=== PATIENT | female | born 1955 | race African-American/Black ===

== ENCOUNTER 2016-10-04 15:00 | Inpatient (IN) | payer BC ==
[~2016-10-04] VITALS: Ht 167.6 cm; Wt 71.7 kg
[~2016-10-04 15:00] MED LIST: AMLO2.5T PO; ATOR40TA28 PO; CARB-60 PO; GABA-529 PO; HYDR-3965 PO; HYDR25TA PO; LISI-660 PO; METO5TAB95 PO; VENL-193 PO
[2016-10-04 16:23] VITALS: BP 142/73
[2016-10-04 16:36] VITALS: BP 142/73
[2016-10-04] MEDS ORDERED: DOCUSATE SODIUM 283 MG/5 ML MINI-ENEMA PR PRN (16:45)
[2016-10-04] MEDS ORDERED: ACETAMINOPHEN 325 MG TABLET PO PRN (16:45)
[2016-10-04] MEDS ORDERED: DEXTROSE 50%-WATER 25 GM/50 ML SYRINGE IVP PRN (16:45)
[2016-10-04] MEDS ORDERED: TEMAZEPAM 15 MG CAPSULE PO PRN (16:45)
[2016-10-04] MEDS: HYDROCODONE/ACETAMINOPHEN 5-325 MG TABLET PO PRN (17:08)
[2016-10-04 18:02] LABS: GLUCOSE,POINT OF CARE 96 MG/DL (70-110)
[2016-10-04] MEDS: CarBAMazepine 200 MG ER TABLET PO SCH (20:43)
[2016-10-04] MEDS: METOCLOPRAMIDE HCL 5 MG TABLET PO SCH (20:43)
[2016-10-04] MEDS: GABAPENTIN 100 MG CAPSULE PO SCH (20:43)
[2016-10-04] MEDS: INSULIN ASPART 100 UNITS/ML SQ PRN (20:59)
[2016-10-04] MEDS ORDERED: DOCUSATE SODIUM 100 MG CAPSULE PO SCH (21:00)
[2016-10-04] MEDS ORDERED: SENNA 187 MG TABLET PO SCH (21:00)
[2016-10-04] MEDS ORDERED: SENNA 187 MG TABLET PO ONE (21:15)
[2016-10-04] MEDS ORDERED: DOCUSATE SODIUM 100 MG CAPSULE PO ONE (21:15)
[2016-10-04 21:43] LABS: APPEARANCE,URINE CLEAR (CLEAR); GLUCOSE, URINE (UA) NEGATIVE (NEGATIVE); KETONES,URINE NEGATIVE (NEGATIVE); LEUKOCYTE ESTERASE ,URINE NEGATIVE (NEGATIVE); OCCULT BLOOD,URINE NEGATIVE (NEGATIVE); PROTEIN,URINE NEGATIVE (NEGATIVE)
[2016-10-04 21:45] LABS: RBC,URINE 0-2 /HPF (0-2); SQUAMOUS EPITHELIAL CELL,UR Few /LPF (None Seen); WBC,URINE 0-2 /HPF (0-5)
[2016-10-04 23:02] LABS: GLUCOSE COMMENT 1 Received Meds; GLUCOSE,POINT OF CARE 156 MG/DL (70-110)
[2016-10-04] MEDS: 0.9% SODIUM CHLORIDE 10 ML SYRINGE IVP SCH (23:06)
[2016-10-04 23:07] VITALS: BP 139/83
[2016-10-05] VITALS (9 sets, daily range): BP systolic 103–139; BP diastolic 64–83
[2016-10-05 05:47] LABS: GLUCOSE,POINT OF CARE 120 MG/DL (70-110)
[2016-10-05] MEDS ORDERED: DOCUSATE SODIUM 283 MG/5 ML MINI-ENEMA PR SCH (06:00)
[2016-10-05 06:33] LABS: BASOPHILS % (AUTO) 0.4 % (0.0-2.0); EOSINOPHILS % (AUTO) 0.1 % (1.0-6.0); HEMATOCRIT 44.9 % (36-46); HEMOGLOBIN 15.2 g/dL (12.0-16.0); LYMPHOCYTES # (AUTO) 4.6 K/uL (1.0-4.8); LYMPHOCYTES % (AUTO) 62.1 % (22.0-44.0); MEAN CORPUSCULAR HEMOGLOBIN 29.5 pg (26.0-34.0); MEAN CORPUSCULAR HGB CONC 33.9 G/dL (31.0-37.0); MEAN CORPUSCULAR VOLUME 87 fL (80-100); MONOCYTES # (AUTO) 0.3 K/uL (0.1-1.0); MONOCYTES % (AUTO) 4.3 % (2.0-9.0); NEUTROPHILS # (AUTO) 2.5 K/uL (1.8-7.7); NEUTROPHILS % (AUTO) 33.1 % (40.0-70.0); PLATELET COUNT (AUTO) 312 K/uL (150-450); RED BLOOD CELL COUNT(AUTO) 5.16 MIL/uL (4.00-5.20); RED CELL DISTRIBUTION WIDTH 13.7 % (11.5-14.5); WHITE BLOOD COUNT (AUTO) 7.5 K/uL (4.5-11.0)
[2016-10-05 06:49] LABS: ALANINE AMINOTRANSFERASE 12 U/L (12-78); ALBUMIN 3.3 g/dL (3.4-5.0); ANION GAP 8 mmol/L (8-16); ASPARTATE AMINOTRANSFERASE 19 U/L (15-37); BILIRUBIN,TOTAL 0.4 mg/dL (0.1-1.0); CALCIUM, TOTAL 9.1 mg/dL (8.8-10.5); CARBON DIOXIDE 30 mmol/L (22-29); CHLORIDE 98 mmol/L (98-107); GLOMERULAR FILTR. RATE CALC > 60 mL/min (>60); SODIUM SERUM 136 mmol/L (136-145); TOTAL PROTEIN, SERUM 7.3 g/dL (6.4-8.2); UREA NITROGEN, BLOOD 24 mg/dL (7-18)
[2016-10-05] MEDS: 0.9% SODIUM CHLORIDE 10 ML SYRINGE IVP SCH (08:00)
[2016-10-05] MEDS: ASPIRIN 325 MG TABLET PO SCH (08:18)
[2016-10-05] MEDS: VENLAFAXINE HCL 75 MG TABLET PO SCH (08:19)
[2016-10-05] MEDS: AmLODIPine BESYLATE 2.5 MG TABLET PO SCH (08:20)
[2016-10-05] MEDS: ATORVASTATIN CALCIUM 40 MG TABLET PO SCH (08:20)
[2016-10-05] MEDS: GABAPENTIN 100 MG CAPSULE PO SCH ×2 (08:20→20:20)
[2016-10-05] MEDS: CarBAMazepine 200 MG ER TABLET PO SCH ×2 (08:20→20:19)
[2016-10-05] MEDS: LISINOPRIL 5 MG TABLET PO SCH (08:20)
[2016-10-05] MEDS: METOCLOPRAMIDE HCL 5 MG TABLET PO SCH ×4 (08:20→20:20)
[2016-10-05] MEDS: HYDROCHLOROTHIAZIDE 25 MG TABLET PO SCH (08:20)
[2016-10-05] MEDS: POLYETHYLENE GLYCOL 3350 17 GM PACKET PO SCH ×2 (08:32→20:20)
[2016-10-05] MEDS: DOCUSATE SODIUM 250 MG CAPSULE PO SCH ×2 (08:32→20:19)
[2016-10-05] MEDS ORDERED: DOCUSATE SODIUM 100 MG CAPSULE PO SCH (09:00)
[2016-10-05 12:58] LABS: GLUCOSE,POINT OF CARE 97 MG/DL (70-110)
[2016-10-05 19:17] LABS: GLUCOSE,POINT OF CARE 84 MG/DL (70-110)
[2016-10-05] MEDS: SENNA 187 MG TABLET PO SCH (20:20)
[2016-10-05 21:27] LABS: GLUCOSE,POINT OF CARE 119 MG/DL (70-110)
[2016-10-06 06:03] LABS: GLUCOSE,POINT OF CARE 133 MG/DL (70-110)
[2016-10-06 07:53] VITALS: BP 127/77
[2016-10-06] MEDS: ATORVASTATIN CALCIUM 40 MG TABLET PO SCH (08:12)
[2016-10-06] MEDS: METOCLOPRAMIDE HCL 5 MG TABLET PO SCH ×4 (08:12→20:34)
[2016-10-06] MEDS: POLYETHYLENE GLYCOL 3350 17 GM PACKET PO SCH ×2 (08:12→20:35)
[2016-10-06] MEDS: DOCUSATE SODIUM 250 MG CAPSULE PO SCH ×2 (08:12→20:34)
[2016-10-06] MEDS: GABAPENTIN 100 MG CAPSULE PO SCH ×2 (08:12→20:35)
[2016-10-06] MEDS: HYDROCHLOROTHIAZIDE 25 MG TABLET PO SCH (08:12)
[2016-10-06] MEDS: AmLODIPine BESYLATE 2.5 MG TABLET PO SCH (08:12)
[2016-10-06] MEDS: CarBAMazepine 200 MG ER TABLET PO SCH ×2 (08:12→20:34)
[2016-10-06] MEDS: LISINOPRIL 5 MG TABLET PO SCH (08:13)
[2016-10-06] MEDS: ASPIRIN 325 MG TABLET PO SCH (08:13)
[2016-10-06] MEDS: VENLAFAXINE HCL 75 MG TABLET PO SCH (08:16)
[2016-10-06 09:07] VITALS: BP 127/77
[2016-10-06] MEDS: ENOXAPARIN SODIUM 40 MG/0.4 ML PF SYRINGE SQ SCH (12:44)
[2016-10-06 12:52] LABS: GLUCOSE,POINT OF CARE 106 MG/DL (70-110)
[2016-10-06 15:31] VITALS: BP 129/75
[2016-10-06 16:30] VITALS: BP 129/75
[2016-10-06 17:22] LABS: GLUCOSE,POINT OF CARE 101 MG/DL (70-110)
[2016-10-06] MEDS: HYDROCODONE/ACETAMINOPHEN 5-325 MG TABLET PO PRN (20:34)
[2016-10-06] MEDS: SENNA 187 MG TABLET PO SCH (20:34)
[2016-10-06 21:06] LABS: GLUCOSE,POINT OF CARE 126 MG/DL (70-110)
[2016-10-07 02:15] VITALS: BP 136/78
[2016-10-07 05:58] LABS: GLUCOSE,POINT OF CARE 124 MG/DL (70-110)
[2016-10-07 07:13] VITALS: BP 106/49
[2016-10-07] MEDS: HYDROCHLOROTHIAZIDE 25 MG TABLET PO SCH (08:04)
[2016-10-07] MEDS: POLYETHYLENE GLYCOL 3350 17 GM PACKET PO SCH ×2 (08:04→20:36)
[2016-10-07] MEDS: LISINOPRIL 5 MG TABLET PO SCH (08:05)
[2016-10-07] MEDS: ATORVASTATIN CALCIUM 40 MG TABLET PO SCH (08:05)
[2016-10-07] MEDS: GABAPENTIN 100 MG CAPSULE PO SCH ×2 (08:05→20:36)
[2016-10-07] MEDS: AmLODIPine BESYLATE 2.5 MG TABLET PO SCH (08:05)
[2016-10-07] MEDS: METOCLOPRAMIDE HCL 5 MG TABLET PO SCH ×4 (08:05→20:37)
[2016-10-07] MEDS: CarBAMazepine 200 MG ER TABLET PO SCH ×2 (08:05→20:36)
[2016-10-07] MEDS: ENOXAPARIN SODIUM 40 MG/0.4 ML PF SYRINGE SQ SCH (08:06)
[2016-10-07] MEDS: ASPIRIN 325 MG TABLET PO SCH (08:06)
[2016-10-07] MEDS: DOCUSATE SODIUM 250 MG CAPSULE PO SCH ×2 (08:06→20:36)
[2016-10-07] MEDS: VENLAFAXINE HCL 75 MG TABLET PO SCH (08:23)
[2016-10-07] MEDS ORDERED: LACTULOSE 20 GM/30 ML SOLUTION UDCUP PO SCH (11:30)
[2016-10-07 12:06] LABS: ANION GAP 8 mmol/L (8-16); CALCIUM, TOTAL 9.5 mg/dL (8.8-10.5); CARBON DIOXIDE 30 mmol/L (22-29); CHLORIDE 97 mmol/L (98-107); CREATININE 1.09 mg/dL (0.60-1.30); GLOMERULAR FILTR. RATE CALC > 60 mL/min (>60); POTASSIUM 4.3 mmol/L (3.5-5.1); SODIUM SERUM 135 mmol/L (136-145); UREA NITROGEN, BLOOD 34 mg/dL (7-18)
[2016-10-07 12:08] LABS: GLUCOSE,POINT OF CARE 108 MG/DL (70-110)
[2016-10-07 15:14] VITALS: BP 118/69
[2016-10-07 18:28] LABS: GLUCOSE,POINT OF CARE 90 MG/DL (70-110)
[2016-10-07] MEDS: HYDROCODONE/ACETAMINOPHEN 5-325 MG TABLET PO PRN (19:47)
[2016-10-07] MEDS: SENNA 187 MG TABLET PO SCH (20:36)
[2016-10-07] MEDS: INSULIN ASPART 100 UNITS/ML SQ PRN (20:39)
[2016-10-07 21:02] LABS: GLUCOSE,POINT OF CARE 195 MG/DL (70-110)
[2016-10-08 20:53] LABS: GLUCOSE COMMENT 1 Received Meds; GLUCOSE,POINT OF CARE 161 MG/DL (70-110)
== END 2016-10-07 22:49 | disposition short-term general hospital (02) | DRG 65 ==
LOC: 2WR 15:00
DX: I63.9 Cerebral infarction, unspecified (principal); F33.1 Major depressive disorder, recurrent, moderate; G81.94 Hemiplegia, unspecified affecting left nondominant side; E78.5 Hyperlipidemia, unspecified; E11.9 Type 2 diabetes mellitus without complications; G40.909 Epilepsy, unspecified, not intractable, without status epilepticus; I11.0 Hypertensive heart disease with heart failure; Z60.2 Problems related to living alone; F17.200 Nicotine dependence, unspecified, uncomplicated; F43.22 Adjustment disorder with anxiety; K59.00 Constipation, unspecified; F12.90 Cannabis use, unspecified, uncomplicated; I50.9 Heart failure, unspecified; Z79.84 Long term (current) use of oral hypoglycemic drugs; Z79.82 Long term (current) use of aspirin; Z91.011 Allergy to milk products; Z79.899 Other long term (current) drug therapy; Z86.73 Personal history of transient ischemic attack (TIA), and cerebral infarction without residual deficits; Z82.49 Family history of ischemic heart disease and other diseases of the circulatory system
CPT/HCPCS: 70450; 82962; 87081; 92507; 92523; 97112; 97116; 97163; 97167; 97530; 97535; 99366; J1650

== ENCOUNTER 2016-10-07 22:55 | Inpatient (IN) | payer BC ==
[2016-10-08] VITALS (7 sets, daily range): BP systolic 109–131; BP diastolic 59–75
[2016-10-08] MEDS ORDERED: 0.9% SODIUM CHLORIDE 10 ML SYRINGE IVP PRN (06:15)
[2016-10-08] MEDS ORDERED: HYDROCODONE/ACETAMINOPHEN 5-325 MG TABLET PO PRN (06:15)
[2016-10-08] MEDS ORDERED: ACETAMINOPHEN 325 MG TABLET PO PRN (06:15)
[2016-10-08] MEDS ORDERED: MAGNESIUM HYDROXIDE SUSPENSION 30 ML UDCUP PO PRN (06:15)
[2016-10-08] MEDS ORDERED: ONDANSETRON HCL 4 MG/2 ML VIAL IVP PRN (06:15)
[2016-10-08] MEDS ORDERED: BISACODYL 10 MG RECTAL RECTAL SUPPOSITORY PR PRN (06:15)
[2016-10-08 06:29] LABS: HEMOGLOBIN A1C 5.6 % (4.5-6.2)
[2016-10-08 06:35] LABS: CHOL/HDL RATIO 3.8 (3.9-5.7); THYROID STIMULATING HORMONE 3.06 uIU/mL (0.36-3.74)
[2016-10-08] MEDS: INSULIN ASPART 100 UNITS/ML SQ PRN ×3 (06:43→18:45)
[2016-10-08] MEDS ORDERED: DEXTROSE 50%-WATER 25 GM/50 ML SYRINGE IVP PRN (06:45)
[2016-10-08 06:48] LABS: EOSINOPHILS % (AUTO) 0.1 % (1.0-6.0); HEMOGLOBIN 13.2 g/dL (12.0-16.0); LYMPHOCYTES # (AUTO) 2.7 K/uL (1.0-4.8); LYMPHOCYTES % (AUTO) 47.9 % (22.0-44.0); MEAN CORPUSCULAR HEMOGLOBIN 29.4 pg (26.0-34.0); MEAN CORPUSCULAR HGB CONC 33.9 G/dL (31.0-37.0); MEAN CORPUSCULAR VOLUME 87 fL (80-100); MONOCYTES # (AUTO) 0.4 K/uL (0.1-1.0); MONOCYTES % (AUTO) 6.4 % (2.0-9.0); NEUTROPHILS # (AUTO) 2.6 K/uL (1.8-7.7); NEUTROPHILS % (AUTO) 45.6 % (40.0-70.0); PLATELET COUNT (AUTO) 377 K/uL (150-450); RED CELL DISTRIBUTION WIDTH 13.8 % (11.5-14.5); WHITE BLOOD COUNT (AUTO) 5.7 K/uL (4.5-11.0)
[2016-10-08 07:06] LABS: ALANINE AMINOTRANSFERASE 15 U/L (12-78); ALBUMIN 3.1 g/dL (3.4-5.0); ANION GAP 7 mmol/L (8-16); ASPARTATE AMINOTRANSFERASE 17 U/L (15-37); BILIRUBIN,TOTAL 0.3 mg/dL (0.1-1.0); CALCIUM, TOTAL 8.8 mg/dL (8.8-10.5); CARBON DIOXIDE 30 mmol/L (22-29); CHLORIDE 97 mmol/L (98-107); CREATININE 1.02 mg/dL (0.60-1.30); GLOMERULAR FILTR. RATE CALC > 60 mL/min (>60); PHOSPHORUS 4.1 mg/dL (2.5-4.9); POTASSIUM 4.1 mmol/L (3.5-5.1); SODIUM SERUM 134 mmol/L (136-145); TOTAL PROTEIN, SERUM 6.9 g/dL (6.4-8.2); UREA NITROGEN, BLOOD 34 mg/dL (7-18)
[2016-10-08] MEDS ORDERED: DIAZEPAM 5 MG TABLET PO ONE (08:00)
[2016-10-08] MEDS: LISINOPRIL 5 MG TABLET PO SCH (09:01)
[2016-10-08] MEDS: AmLODIPine BESYLATE 2.5 MG TABLET PO SCH (09:01)
[2016-10-08] MEDS: CLOPIDOGREL BISULFATE 75 MG TABLET PO SCH (09:01)
[2016-10-08] MEDS: GABAPENTIN 100 MG CAPSULE PO SCH ×2 (09:01→20:53)
[2016-10-08] MEDS: PANTOPRAZOLE SODIUM 40 MG DR TABLET PO SCH (09:01)
[2016-10-08] MEDS: ATORVASTATIN CALCIUM 40 MG TABLET PO SCH (09:01)
[2016-10-08] MEDS: VENLAFAXINE HCL 75 MG TABLET PO SCH (09:01)
[2016-10-08] MEDS: DOCUSATE SODIUM 100 MG CAPSULE PO PRN (16:28)
[2016-10-08 20:53] LABS: GLUCOSE,POINT OF CARE 111 MG/DL (70-110)
[2016-10-08 20:53] LABS: GLUCOSE,POINT OF CARE 171 MG/DL (70-110)
[2016-10-08] MEDS: LevETIRAcetam 500 MG TABLET PO SCH (20:53)
[2016-10-09 04:35] VITALS: BP 111/63
[2016-10-09] MEDS: INSULIN ASPART 100 UNITS/ML SQ PRN ×2 (06:05→21:11)
[2016-10-09 07:42] LABS: GLUCOSE COMMENT 1 Received Meds; GLUCOSE,POINT OF CARE 149 MG/DL (70-110)
[2016-10-09 08:03] VITALS: BP 108/55
[2016-10-09] MEDS: AmLODIPine BESYLATE 2.5 MG TABLET PO SCH (09:00)
[2016-10-09] MEDS: CLOPIDOGREL BISULFATE 75 MG TABLET PO SCH (09:06)
[2016-10-09] MEDS: PANTOPRAZOLE SODIUM 40 MG DR TABLET PO SCH (09:06)
[2016-10-09] MEDS: VENLAFAXINE HCL 75 MG TABLET PO SCH (09:06)
[2016-10-09] MEDS: ATORVASTATIN CALCIUM 40 MG TABLET PO SCH (09:06)
[2016-10-09] MEDS: LevETIRAcetam 500 MG TABLET PO SCH ×2 (09:06→21:11)
[2016-10-09] MEDS: GABAPENTIN 100 MG CAPSULE PO SCH ×2 (09:06→21:11)
[2016-10-09] MEDS: LISINOPRIL 5 MG TABLET PO SCH (11:46)
[2016-10-09 12:09] VITALS: BP 128/65
[2016-10-09 16:28] VITALS: BP 113/66
[2016-10-09 19:19] VITALS: BP 128/78
[2016-10-09 19:28] LABS: GLUCOSE,POINT OF CARE 106 MG/DL (70-110)
[2016-10-09 19:28] LABS: GLUCOSE,POINT OF CARE 101 MG/DL (70-110)
[2016-10-09 23:32] VITALS: BP 97/82
[2016-10-10 01:53] LABS: GLUCOSE COMMENT 1 Received Meds; GLUCOSE,POINT OF CARE 184 MG/DL (70-110)
[2016-10-10 04:49] VITALS: BP 105/62
[2016-10-10 08:12] VITALS: BP 107/62
[2016-10-10] MEDS: PANTOPRAZOLE SODIUM 40 MG DR TABLET PO SCH (08:30)
[2016-10-10] MEDS: AmLODIPine BESYLATE 2.5 MG TABLET PO SCH (08:30)
[2016-10-10] MEDS: VENLAFAXINE HCL 75 MG TABLET PO SCH (08:30)
[2016-10-10] MEDS: LISINOPRIL 5 MG TABLET PO SCH (08:30)
[2016-10-10] MEDS: GABAPENTIN 100 MG CAPSULE PO SCH ×2 (08:30→20:19)
[2016-10-10] MEDS: ATORVASTATIN CALCIUM 40 MG TABLET PO SCH (08:30)
[2016-10-10] MEDS: LevETIRAcetam 500 MG TABLET PO SCH ×2 (08:30→20:19)
[2016-10-10] MEDS: CLOPIDOGREL BISULFATE 75 MG TABLET PO SCH (08:30)
[2016-10-10 09:52] LABS: GLUCOSE,POINT OF CARE 134 MG/DL (70-110)
[2016-10-10 11:53] LABS: GLUCOSE,POINT OF CARE 103 MG/DL (70-110)
[2016-10-10 12:05] VITALS: BP 121/68
[2016-10-10 16:13] VITALS: BP 121/64
[2016-10-10] MEDS: INSULIN ASPART 100 UNITS/ML SQ PRN (17:20)
[2016-10-10 19:35] VITALS: BP 128/61
[2016-10-10 23:38] LABS: GLUCOSE,POINT OF CARE 136 MG/DL (70-110)
[2016-10-10 23:38] LABS: GLUCOSE,POINT OF CARE 283 MG/DL (70-110)
[2016-10-11 00:01] VITALS: BP 123/64
[2016-10-11 04:42] VITALS: BP 113/66
[2016-10-11 07:54] VITALS: BP 112/71
[2016-10-11] MEDS: AmLODIPine BESYLATE 2.5 MG TABLET PO SCH (08:45)
[2016-10-11] MEDS: VENLAFAXINE HCL 75 MG TABLET PO SCH (08:45)
[2016-10-11] MEDS: CLOPIDOGREL BISULFATE 75 MG TABLET PO SCH (08:45)
[2016-10-11] MEDS: GABAPENTIN 100 MG CAPSULE PO SCH ×2 (08:45→20:40)
[2016-10-11] MEDS: PANTOPRAZOLE SODIUM 40 MG DR TABLET PO SCH (08:45)
[2016-10-11] MEDS: LevETIRAcetam 500 MG TABLET PO SCH ×2 (08:45→20:40)
[2016-10-11] MEDS: ATORVASTATIN CALCIUM 40 MG TABLET PO SCH (08:45)
[2016-10-11] MEDS: LISINOPRIL 5 MG TABLET PO SCH (11:39)
[2016-10-11 12:02] VITALS: BP 119/65
[2016-10-11 13:57] LABS: GLUCOSE,POINT OF CARE 134 MG/DL (70-110)
[2016-10-11 13:58] LABS: GLUCOSE,POINT OF CARE 98 MG/DL (70-110)
[2016-10-11 13:58] LABS: GLUCOSE,POINT OF CARE 123 MG/DL (70-110)
[2016-10-11] MEDS ORDERED: ATOR40TA28 PO (15:45)
[2016-10-11] MEDS ORDERED: CLOP75 PO (15:47)
[2016-10-11] MEDS ORDERED: ASPI-1093 PO (15:47)
[2016-10-11] MEDS ORDERED: LEVE500T53 PO (15:52)
[2016-10-11 20:29] VITALS: BP 115/77
[2016-10-11] MEDS: INSULIN ASPART 100 UNITS/ML SQ PRN (20:42)
[2016-10-11 23:11] VITALS: BP 122/67
[2016-10-12 04:56] VITALS: BP 115/71
[2016-10-12] MEDS: INSULIN ASPART 100 UNITS/ML SQ PRN (06:28)
[2016-10-12 07:41] VITALS: BP 115/76
[2016-10-12] MEDS: GABAPENTIN 100 MG CAPSULE PO SCH (08:18)
[2016-10-12] MEDS: ATORVASTATIN CALCIUM 40 MG TABLET PO SCH (08:18)
[2016-10-12] MEDS: VENLAFAXINE HCL 75 MG TABLET PO SCH (08:18)
[2016-10-12] MEDS: PANTOPRAZOLE SODIUM 40 MG DR TABLET PO SCH (08:18)
[2016-10-12] MEDS: LISINOPRIL 5 MG TABLET PO SCH (08:18)
[2016-10-12] MEDS: LevETIRAcetam 500 MG TABLET PO SCH (08:18)
[2016-10-12] MEDS: DOCUSATE SODIUM 100 MG CAPSULE PO PRN (08:19)
[2016-10-12] MEDS: CLOPIDOGREL BISULFATE 75 MG TABLET PO SCH (08:19)
[2016-10-12] MEDS: AmLODIPine BESYLATE 2.5 MG TABLET PO SCH (09:00)
[2016-10-12 12:04] VITALS: BP 116/63
[2016-10-13 07:48] LABS: GLUCOSE COMMENT 1 Received Meds; GLUCOSE,POINT OF CARE 145 MG/DL (70-110)
[2016-10-13 07:48] LABS: GLUCOSE,POINT OF CARE 136 MG/DL (70-110)
[2016-10-13 07:48] LABS: GLUCOSE,POINT OF CARE 116 MG/DL (70-110)
[2016-10-13 17:18] LABS: GLUCOSE,POINT OF CARE 126 MG/DL (70-110)
[2016-10-14 07:53] LABS: GLUCOSE COMMENT 1 Received Meds; GLUCOSE,POINT OF CARE 185 MG/DL (70-110)
== END 2016-10-12 15:40 | DRG 65 ==
LOC: 5N 22:55 → 5S 10-08 22:40 → 5N 10-10 20:07
PROVIDERS: ADMIT Internal Medicine; ATTEND Internal Medicine
DX: I63.9 Cerebral infarction, unspecified (principal); I69.354 Hemiplegia and hemiparesis following cerebral infarction affecting left non-dominant side; E11.9 Type 2 diabetes mellitus without complications; E78.00 Pure hypercholesterolemia, unspecified; I10 Essential (primary) hypertension; E78.5 Hyperlipidemia, unspecified; G40.909 Epilepsy, unspecified, not intractable, without status epilepticus; Z79.02 Long term (current) use of antithrombotics/antiplatelets; Z79.899 Other long term (current) drug therapy; Z82.49 Family history of ischemic heart disease and other diseases of the circulatory system; Z88.8 Allergy status to other drugs, medicaments and biological substances
CPT/HCPCS: 70544; 70551; 82607; 82746; 82962; 83036; 83735; 84100; 84439; 84443; 87081; 92507; 92523; 93306; 93880; 95816; 97112; 97116; 97163; 97166; 97530; 97535

== ENCOUNTER 2016-10-12 15:40 | Inpatient (IN) | payer BC ==
[~2016-10-12] VITALS: Ht 167.6 cm; Wt 68.0 kg
[~2016-10-12 15:40] MED LIST changes: +ASPI-1093 PO; +CLOP75 PO; +LEVE500T53 PO
[2016-10-12] MEDS ORDERED: DOCUSATE SODIUM 283 MG/5 ML MINI-ENEMA PR PRN (16:45)
[2016-10-12 16:48] VITALS: BP 101/68
[2016-10-12] MEDS ORDERED: DEXTROSE 50%-WATER 25 GM/50 ML SYRINGE IVP PRN (17:30)
[2016-10-12] MEDS: ATORVASTATIN CALCIUM 40 MG TABLET PO SCH (20:57)
[2016-10-12] MEDS: LevETIRAcetam 500 MG TABLET PO SCH (20:57)
[2016-10-12] MEDS: METOCLOPRAMIDE HCL 5 MG TABLET PO SCH (20:57)
[2016-10-12] MEDS: SENNA 187 MG TABLET PO SCH (20:57)
[2016-10-12] MEDS: GABAPENTIN 100 MG CAPSULE PO SCH (20:57)
[2016-10-12] MEDS: DOCUSATE SODIUM 100 MG CAPSULE PO SCH (20:57)
[2016-10-12] MEDS: CarBAMazepine 200 MG TABLET PO SCH (20:58)
[2016-10-12 21:18] LABS: APPEARANCE,URINE CLEAR (CLEAR); GLUCOSE, URINE (UA) NEGATIVE (NEGATIVE); KETONES,URINE NEGATIVE (NEGATIVE); LEUKOCYTE ESTERASE ,URINE NEGATIVE (NEGATIVE); OCCULT BLOOD,URINE NEGATIVE (NEGATIVE); PROTEIN,URINE NEGATIVE (NEGATIVE)
[2016-10-12 21:23] LABS: ADD UA MICROSCOPIC NO
[2016-10-12 22:33] LABS: GLUCOSE,POINT OF CARE 119 MG/DL (70-110)
[2016-10-13] VITALS: BP 115/66
[2016-10-13 06:02] LABS: GLUCOSE,POINT OF CARE 147 MG/DL (70-110)
[2016-10-13 07:10] VITALS: BP 113/66
[2016-10-13 07:23] LABS: ALANINE AMINOTRANSFERASE 13 U/L (12-78); ALBUMIN 2.9 g/dL (3.4-5.0); ANION GAP 7 mmol/L (8-16); ASPARTATE AMINOTRANSFERASE 16 U/L (15-37); BILIRUBIN,TOTAL 0.2 mg/dL (0.1-1.0); CALCIUM, TOTAL 8.8 mg/dL (8.8-10.5); CARBON DIOXIDE 30 mmol/L (22-29); CHLORIDE 104 mmol/L (98-107); CREATININE 1.02 mg/dL (0.60-1.30); GLOMERULAR FILTR. RATE CALC > 60 mL/min (>60); POTASSIUM 4.9 mmol/L (3.5-5.1); SODIUM SERUM 141 mmol/L (136-145); TOTAL PROTEIN, SERUM 6.6 g/dL (6.4-8.2); UREA NITROGEN, BLOOD 28 mg/dL (7-18)
[2016-10-13 07:25] LABS: BASOPHILS # (AUTO) 0.01 K/uL (0.00-0.20); BASOPHILS % (AUTO) 0.2 % (0.0-2.0); EOSINOPHILS % (AUTO) 0.05 % (1.0-6.0); HEMATOCRIT 38.7 % (36-46); HEMOGLOBIN 12.6 g/dL (12.0-16.0); LYMPHOCYTES # (AUTO) 3.1 K/uL (1.0-4.8); LYMPHOCYTES % (AUTO) 50.3 % (22.0-44.0); MEAN CORPUSCULAR HEMOGLOBIN 28.8 pg (26.0-34.0); MEAN CORPUSCULAR HGB CONC 32.5 G/dL (31.0-37.0); MEAN CORPUSCULAR VOLUME 89 fL (80-100); MONOCYTES # (AUTO) 0.4 K/uL (0.1-1.0); MONOCYTES % (AUTO) 6.6 % (2.0-9.0); NEUTROPHILS # (AUTO) 2.6 K/uL (1.8-7.7); NEUTROPHILS % (AUTO) 42.9 % (40.0-70.0); PLATELET COUNT (AUTO) 456 K/uL (150-450); RED BLOOD CELL COUNT(AUTO) 4.37 MIL/uL (4.00-5.20); RED CELL DISTRIBUTION WIDTH 13.4 % (11.5-14.5); WHITE BLOOD COUNT (AUTO) 6.1 K/uL (4.5-11.0)
[2016-10-13] MEDS: AmLODIPine BESYLATE 2.5 MG TABLET PO SCH (08:18)
[2016-10-13] MEDS: GABAPENTIN 100 MG CAPSULE PO SCH (08:18)
[2016-10-13] MEDS: HYDROCHLOROTHIAZIDE 25 MG TABLET PO SCH (08:18)
[2016-10-13] MEDS: DOCUSATE SODIUM 100 MG CAPSULE PO SCH ×2 (08:18→20:25)
[2016-10-13] MEDS: VENLAFAXINE HCL 75 MG TABLET PO SCH (08:18)
[2016-10-13] MEDS: LISINOPRIL 5 MG TABLET PO SCH (08:18)
[2016-10-13] MEDS: LevETIRAcetam 500 MG TABLET PO SCH ×2 (08:18→20:25)
[2016-10-13] MEDS: CLOPIDOGREL BISULFATE 75 MG TABLET PO SCH (08:18)
[2016-10-13] MEDS: METOCLOPRAMIDE HCL 5 MG TABLET PO SCH (08:19)
[2016-10-13] MEDS: ASPIRIN 81 MG EC TABLET PO SCH (08:19)
[2016-10-13] MEDS: INSULIN ASPART 100 UNITS/ML SQ PRN ×2 (08:37→21:25)
[2016-10-13] MEDS: CarBAMazepine 200 MG TABLET PO SCH ×2 (09:00→21:00)
[2016-10-13 12:12] LABS: GLUCOSE,POINT OF CARE 121 MG/DL (70-110)
[2016-10-13 16:40] VITALS: BP 119/68
[2016-10-13 17:18] LABS: GLUCOSE,POINT OF CARE 114 MG/DL (70-110)
[2016-10-13] MEDS: ATORVASTATIN CALCIUM 40 MG TABLET PO SCH (20:25)
[2016-10-13] MEDS: SENNA 187 MG TABLET PO SCH (20:25)
[2016-10-13 21:27] LABS: GLUCOSE COMMENT 1 Received Meds; GLUCOSE,POINT OF CARE 163 MG/DL (70-110)
[2016-10-14 01:04] VITALS: BP 116/55
[2016-10-14 05:57] LABS: GLUCOSE,POINT OF CARE 136 MG/DL (70-110)
[2016-10-14 08:30] VITALS: BP 111/71
[2016-10-14] MEDS: LevETIRAcetam 500 MG TABLET PO SCH ×2 (09:08→20:00)
[2016-10-14] MEDS: VENLAFAXINE HCL 75 MG TABLET PO SCH (09:08)
[2016-10-14] MEDS: DOCUSATE SODIUM 100 MG CAPSULE PO SCH ×2 (09:08→20:00)
[2016-10-14] MEDS: AmLODIPine BESYLATE 2.5 MG TABLET PO SCH (09:08)
[2016-10-14] MEDS: CLOPIDOGREL BISULFATE 75 MG TABLET PO SCH (09:08)
[2016-10-14] MEDS: LISINOPRIL 5 MG TABLET PO SCH (09:08)
[2016-10-14] MEDS: ASPIRIN 81 MG EC TABLET PO SCH (09:08)
[2016-10-14] MEDS: HYDROCHLOROTHIAZIDE 25 MG TABLET PO SCH (09:08)
[2016-10-14 12:33] LABS: GLUCOSE,POINT OF CARE 128 MG/DL (70-110)
[2016-10-14] MEDS: FAMOTIDINE 20 MG TABLET PO SCH (12:41)
[2016-10-14 15:59] VITALS: BP 124/77
[2016-10-14 17:43] LABS: GLUCOSE,POINT OF CARE 107 MG/DL (70-110)
[2016-10-14] MEDS: ACETAMINOPHEN 325 MG TABLET PO PRN (19:11)
[2016-10-14] MEDS: SENNA 187 MG TABLET PO SCH (20:00)
[2016-10-14] MEDS: ATORVASTATIN CALCIUM 40 MG TABLET PO SCH (20:00)
[2016-10-14 22:32] LABS: GLUCOSE,POINT OF CARE 179 MG/DL (70-110)
[2016-10-14 23:33] VITALS: BP 130/60
[2016-10-15 06:17] LABS: GLUCOSE,POINT OF CARE 114 MG/DL (70-110)
[2016-10-15 07:55] VITALS: BP 102/61
[2016-10-15] MEDS: FAMOTIDINE 20 MG TABLET PO SCH (08:23)
[2016-10-15] MEDS: ASPIRIN 81 MG EC TABLET PO SCH (08:23)
[2016-10-15] MEDS: CLOPIDOGREL BISULFATE 75 MG TABLET PO SCH (08:23)
[2016-10-15] MEDS: LevETIRAcetam 500 MG TABLET PO SCH ×2 (08:24→20:34)
[2016-10-15] MEDS: VENLAFAXINE HCL 75 MG TABLET PO SCH (08:24)
[2016-10-15] MEDS: DOCUSATE SODIUM 100 MG CAPSULE PO SCH ×2 (08:25→20:34)
[2016-10-15 10:59] VITALS: BP 116/63
[2016-10-15] MEDS: AmLODIPine BESYLATE 2.5 MG TABLET PO SCH (11:02)
[2016-10-15] MEDS: HYDROCHLOROTHIAZIDE 25 MG TABLET PO SCH (11:02)
[2016-10-15] MEDS: LISINOPRIL 5 MG TABLET PO SCH (11:02)
[2016-10-15] MEDS: GABAPENTIN 100 MG CAPSULE PO SCH ×2 (11:03→20:34)
[2016-10-15 12:12] LABS: GLUCOSE,POINT OF CARE 99 MG/DL (70-110)
[2016-10-15] MEDS: INSULIN ASPART 100 UNITS/ML SQ PRN (12:19)
[2016-10-15 15:49] VITALS: BP 123/60
[2016-10-15] MEDS: HYDROCODONE/ACETAMINOPHEN 5-325 MG TABLET PO PRN (18:42)
[2016-10-15 18:44] VITALS: BP 106/55
[2016-10-15 19:42] LABS: GLUCOSE,POINT OF CARE 104 MG/DL (70-110)
[2016-10-15] MEDS: ATORVASTATIN CALCIUM 40 MG TABLET PO SCH (20:34)
[2016-10-15 21:17] LABS: GLUCOSE,POINT OF CARE 112 MG/DL (70-110)
[2016-10-16 01:17] VITALS: BP 116/57
[2016-10-16 07:20] VITALS: BP 112/59
[2016-10-16] MEDS: AmLODIPine BESYLATE 2.5 MG TABLET PO SCH (08:07)
[2016-10-16] MEDS: GABAPENTIN 100 MG CAPSULE PO SCH ×2 (08:07→20:24)
[2016-10-16] MEDS: VENLAFAXINE HCL 75 MG TABLET PO SCH (08:07)
[2016-10-16] MEDS: LISINOPRIL 5 MG TABLET PO SCH (08:07)
[2016-10-16] MEDS: LevETIRAcetam 500 MG TABLET PO SCH ×2 (08:07→20:24)
[2016-10-16] MEDS: HYDROCHLOROTHIAZIDE 25 MG TABLET PO SCH (08:07)
[2016-10-16] MEDS: DOCUSATE SODIUM 100 MG CAPSULE PO SCH ×3 (08:08→20:24)
[2016-10-16] MEDS: FAMOTIDINE 20 MG TABLET PO SCH (08:08)
[2016-10-16] MEDS: CLOPIDOGREL BISULFATE 75 MG TABLET PO SCH (08:08)
[2016-10-16] MEDS: ASPIRIN 81 MG EC TABLET PO SCH (08:08)
[2016-10-16 15:26] VITALS: BP 116/61
[2016-10-16] MEDS: ATORVASTATIN CALCIUM 40 MG TABLET PO SCH (20:24)
[2016-10-16] MEDS: INSULIN ASPART 100 UNITS/ML SQ PRN (21:15)
[2016-10-16 23:30] VITALS: BP 116/66
[2016-10-17 07:10] VITALS: BP 112/62
[2016-10-17] MEDS: DOCUSATE SODIUM 100 MG CAPSULE PO SCH ×2 (08:59→20:58)
[2016-10-17] MEDS: FAMOTIDINE 20 MG TABLET PO SCH (09:00)
[2016-10-17] MEDS: LISINOPRIL 5 MG TABLET PO SCH (09:00)
[2016-10-17] MEDS: AmLODIPine BESYLATE 2.5 MG TABLET PO SCH (09:00)
[2016-10-17] MEDS: VENLAFAXINE HCL 75 MG TABLET PO SCH (09:00)
[2016-10-17] MEDS: LevETIRAcetam 500 MG TABLET PO SCH ×2 (09:00→20:58)
[2016-10-17] MEDS: CLOPIDOGREL BISULFATE 75 MG TABLET PO SCH (09:00)
[2016-10-17] MEDS: HYDROCHLOROTHIAZIDE 25 MG TABLET PO SCH (09:00)
[2016-10-17] MEDS: GABAPENTIN 100 MG CAPSULE PO SCH ×2 (09:00→20:58)
[2016-10-17] MEDS: ASPIRIN 81 MG EC TABLET PO SCH (09:01)
[2016-10-17 15:30] VITALS: BP 114/66
[2016-10-17] MEDS: ATORVASTATIN CALCIUM 40 MG TABLET PO SCH (20:58)
[2016-10-17] MEDS: INSULIN ASPART 100 UNITS/ML SQ PRN (20:59)
[2016-10-17] MEDS: ACETAMINOPHEN 325 MG TABLET PO PRN (21:13)
[2016-10-17 23:26] VITALS: BP 110/64
[2016-10-17] MEDS: HYDROCODONE/ACETAMINOPHEN 5-325 MG TABLET PO PRN (23:26)
[2016-10-18 07:00] VITALS: BP 114/61
[2016-10-18] MEDS: AmLODIPine BESYLATE 2.5 MG TABLET PO SCH (08:30)
[2016-10-18] MEDS: GABAPENTIN 100 MG CAPSULE PO SCH ×2 (08:30→20:54)
[2016-10-18] MEDS: VENLAFAXINE HCL 75 MG TABLET PO SCH (08:30)
[2016-10-18] MEDS: CLOPIDOGREL BISULFATE 75 MG TABLET PO SCH (08:30)
[2016-10-18] MEDS: LISINOPRIL 5 MG TABLET PO SCH (08:30)
[2016-10-18] MEDS: LevETIRAcetam 500 MG TABLET PO SCH ×2 (08:30→20:54)
[2016-10-18] MEDS: FAMOTIDINE 20 MG TABLET PO SCH (08:30)
[2016-10-18] MEDS: HYDROCHLOROTHIAZIDE 25 MG TABLET PO SCH (08:30)
[2016-10-18] MEDS: ASPIRIN 81 MG EC TABLET PO SCH (08:30)
[2016-10-18] MEDS: DOCUSATE SODIUM 100 MG CAPSULE PO SCH ×2 (08:30→20:54)
[2016-10-18 09:51] LABS: GLUCOSE,POINT OF CARE 89 MG/DL (70-110)
[2016-10-18 10:02] LABS: GLUCOSE,POINT OF CARE 115 MG/DL (70-110)
[2016-10-18 10:03] LABS: GLUCOSE,POINT OF CARE 88 MG/DL (70-110)
[2016-10-18 10:13] LABS: GLUCOSE,POINT OF CARE 162 MG/DL (70-110)
[2016-10-18 10:21] LABS: GLUCOSE,POINT OF CARE 100 MG/DL (70-110)
[2016-10-18 10:29] LABS: GLUCOSE,POINT OF CARE 121 MG/DL (70-110)
[2016-10-18 10:29] LABS: GLUCOSE,POINT OF CARE 88 MG/DL (70-110)
[2016-10-18 11:13] LABS: GLUCOSE COMMENT 1 Received Meds; GLUCOSE,POINT OF CARE 145 MG/DL (70-110)
[2016-10-18 11:42] LABS: GLUCOSE,POINT OF CARE 130 MG/DL (70-110)
[2016-10-18 15:15] VITALS: BP 118/42
[2016-10-18 16:39] LABS: GLUCOSE,POINT OF CARE 97 MG/DL (70-110)
[2016-10-18 17:52] LABS: GLUCOSE,POINT OF CARE 113 MG/DL (70-110)
[2016-10-18] MEDS: ATORVASTATIN CALCIUM 40 MG TABLET PO SCH (20:58)
[2016-10-18] MEDS: INSULIN ASPART 100 UNITS/ML SQ PRN (21:10)
[2016-10-18 21:37] LABS: GLUCOSE COMMENT 1 Received Meds; GLUCOSE,POINT OF CARE 142 MG/DL (70-110)
[2016-10-19] VITALS: BP 112/62
[2016-10-19 06:11] VITALS: BP 106/63
[2016-10-19] MEDS: ACETAMINOPHEN 325 MG TABLET PO PRN (06:11)
[2016-10-19 06:23] LABS: GLUCOSE,POINT OF CARE 100 MG/DL (70-110)
[2016-10-19 08:00] VITALS: BP 114/61
[2016-10-19] MEDS: LISINOPRIL 5 MG TABLET PO SCH (09:12)
[2016-10-19] MEDS: HYDROCHLOROTHIAZIDE 25 MG TABLET PO SCH (09:12)
[2016-10-19] MEDS: VENLAFAXINE HCL 75 MG TABLET PO SCH (09:12)
[2016-10-19] MEDS: CLOPIDOGREL BISULFATE 75 MG TABLET PO SCH (09:12)
[2016-10-19] MEDS: DOCUSATE SODIUM 100 MG CAPSULE PO SCH ×2 (09:12→20:28)
[2016-10-19] MEDS: ASPIRIN 81 MG EC TABLET PO SCH (09:12)
[2016-10-19] MEDS: LevETIRAcetam 500 MG TABLET PO SCH ×2 (09:12→20:28)
[2016-10-19] MEDS: GABAPENTIN 100 MG CAPSULE PO SCH ×2 (09:13→20:28)
[2016-10-19] MEDS: FAMOTIDINE 20 MG TABLET PO SCH (09:13)
[2016-10-19] MEDS: AmLODIPine BESYLATE 2.5 MG TABLET PO SCH (09:13)
[2016-10-19 11:33] LABS: GLUCOSE,POINT OF CARE 76 MG/DL (70-110)
[2016-10-19 15:30] VITALS: BP 121/72
[2016-10-19 17:43] LABS: GLUCOSE,POINT OF CARE 100 MG/DL (70-110)
[2016-10-19] MEDS: ATORVASTATIN CALCIUM 40 MG TABLET PO SCH (20:28)
[2016-10-19 22:23] LABS: GLUCOSE,POINT OF CARE 110 MG/DL (70-110)
[2016-10-20 00:32] VITALS: BP 100/65
[2016-10-20 06:08] LABS: GLUCOSE,POINT OF CARE 110 MG/DL (70-110)
[2016-10-20 08:13] VITALS: BP 103/59
[2016-10-20] MEDS: DOCUSATE SODIUM 100 MG CAPSULE PO SCH ×2 (09:00→20:15)
[2016-10-20] MEDS: LISINOPRIL 5 MG TABLET PO SCH ×2 (09:00→09:41)
[2016-10-20] MEDS: AmLODIPine BESYLATE 2.5 MG TABLET PO SCH ×2 (09:00→09:40)
[2016-10-20] MEDS: FAMOTIDINE 20 MG TABLET PO SCH (09:40)
[2016-10-20] MEDS: LevETIRAcetam 500 MG TABLET PO SCH ×2 (09:40→20:15)
[2016-10-20] MEDS: VENLAFAXINE HCL 75 MG TABLET PO SCH (09:40)
[2016-10-20] MEDS: CLOPIDOGREL BISULFATE 75 MG TABLET PO SCH (09:40)
[2016-10-20] MEDS: HYDROCHLOROTHIAZIDE 25 MG TABLET PO SCH (09:41)
[2016-10-20] MEDS: ASPIRIN 81 MG EC TABLET PO SCH (09:41)
[2016-10-20] MEDS: GABAPENTIN 100 MG CAPSULE PO SCH ×2 (09:41→20:15)
[2016-10-20 12:57] LABS: GLUCOSE,POINT OF CARE 108 MG/DL (70-110)
[2016-10-20 15:06] VITALS: BP 132/65
[2016-10-20] MEDS: ATORVASTATIN CALCIUM 40 MG TABLET PO SCH (20:15)
[2016-10-20 20:57] LABS: GLUCOSE,POINT OF CARE 94 MG/DL (70-110)
[2016-10-20 22:02] LABS: GLUCOSE,POINT OF CARE 136 MG/DL (70-110)
[2016-10-21 01:15] VITALS: BP 114/68
[2016-10-21 06:17] LABS: GLUCOSE,POINT OF CARE 118 MG/DL (70-110)
[2016-10-21 07:48] VITALS: BP 110/51
[2016-10-21] MEDS: CLOPIDOGREL BISULFATE 75 MG TABLET PO SCH (08:09)
[2016-10-21] MEDS: DOCUSATE SODIUM 100 MG CAPSULE PO SCH ×2 (08:10→20:24)
[2016-10-21] MEDS: FAMOTIDINE 20 MG TABLET PO SCH (08:10)
[2016-10-21] MEDS: GABAPENTIN 100 MG CAPSULE PO SCH ×4 (08:10→20:24)
[2016-10-21] MEDS: ASPIRIN 81 MG EC TABLET PO SCH (08:10)
[2016-10-21] MEDS: LISINOPRIL 5 MG TABLET PO SCH (08:11)
[2016-10-21] MEDS: HYDROCHLOROTHIAZIDE 25 MG TABLET PO SCH (08:11)
[2016-10-21] MEDS: LevETIRAcetam 500 MG TABLET PO SCH ×2 (08:11→20:24)
[2016-10-21] MEDS: VENLAFAXINE HCL 75 MG TABLET PO SCH (08:11)
[2016-10-21] MEDS: AmLODIPine BESYLATE 2.5 MG TABLET PO SCH (08:11)
[2016-10-21 11:47] LABS: GLUCOSE,POINT OF CARE 98 MG/DL (70-110)
[2016-10-21] MEDS: HYDROCODONE/ACETAMINOPHEN 5-325 MG TABLET PO PRN ×2 (14:13→20:36)
[2016-10-21 15:29] VITALS: BP 109/69
[2016-10-21 17:27] LABS: GLUCOSE,POINT OF CARE 91 MG/DL (70-110)
[2016-10-21] MEDS: GABAPENTIN 300 MG CAPSULE PO SCH (20:24)
[2016-10-21] MEDS: ATORVASTATIN CALCIUM 40 MG TABLET PO SCH (20:24)
[2016-10-21 21:48] LABS: GLUCOSE,POINT OF CARE 118 MG/DL (70-110)
[2016-10-22] VITALS: BP 115/56
[2016-10-22 05:47] LABS: GLUCOSE,POINT OF CARE 112 MG/DL (70-110)
[2016-10-22 07:15] VITALS: BP 102/57
[2016-10-22] MEDS: DOCUSATE SODIUM 100 MG CAPSULE PO SCH ×2 (08:29→20:51)
[2016-10-22] MEDS: LevETIRAcetam 500 MG TABLET PO SCH ×2 (08:29→20:49)
[2016-10-22] MEDS: VENLAFAXINE HCL 75 MG TABLET PO SCH (08:30)
[2016-10-22] MEDS: HYDROCHLOROTHIAZIDE 25 MG TABLET PO SCH (08:30)
[2016-10-22] MEDS: GABAPENTIN 100 MG CAPSULE PO SCH ×2 (08:30→16:59)
[2016-10-22] MEDS: ASPIRIN 81 MG EC TABLET PO SCH (08:30)
[2016-10-22] MEDS: CLOPIDOGREL BISULFATE 75 MG TABLET PO SCH (08:33)
[2016-10-22] MEDS: FAMOTIDINE 20 MG TABLET PO SCH (08:35)
[2016-10-22] MEDS: LISINOPRIL 5 MG TABLET PO SCH (09:00)
[2016-10-22] MEDS: AmLODIPine BESYLATE 2.5 MG TABLET PO SCH (09:00)
[2016-10-22 12:42] LABS: GLUCOSE,POINT OF CARE 94 MG/DL (70-110)
[2016-10-22 15:06] VITALS: BP 117/65
[2016-10-22 18:07] LABS: GLUCOSE,POINT OF CARE 119 MG/DL (70-110)
[2016-10-22] MEDS: HYDROCODONE/ACETAMINOPHEN 5-325 MG TABLET PO PRN (19:47)
[2016-10-22] MEDS: ATORVASTATIN CALCIUM 40 MG TABLET PO SCH (20:49)
[2016-10-22] MEDS: GABAPENTIN 300 MG CAPSULE PO SCH (20:51)
[2016-10-23 03:17] VITALS: BP 125/70
[2016-10-23 06:17] LABS: GLUCOSE,POINT OF CARE 99 MG/DL (70-110)
[2016-10-23 07:34] VITALS: BP 111/66
[2016-10-23] MEDS: FAMOTIDINE 20 MG TABLET PO SCH (08:27)
[2016-10-23] MEDS: DOCUSATE SODIUM 100 MG CAPSULE PO SCH ×2 (08:27→20:39)
[2016-10-23] MEDS: LevETIRAcetam 500 MG TABLET PO SCH ×2 (08:27→20:39)
[2016-10-23] MEDS: LISINOPRIL 5 MG TABLET PO SCH (08:27)
[2016-10-23] MEDS: CLOPIDOGREL BISULFATE 75 MG TABLET PO SCH (08:27)
[2016-10-23] MEDS: HYDROCHLOROTHIAZIDE 25 MG TABLET PO SCH (08:27)
[2016-10-23] MEDS: VENLAFAXINE HCL 75 MG TABLET PO SCH (08:28)
[2016-10-23] MEDS: AmLODIPine BESYLATE 2.5 MG TABLET PO SCH (08:28)
[2016-10-23] MEDS: GABAPENTIN 100 MG CAPSULE PO SCH ×2 (08:28→17:39)
[2016-10-23] MEDS: ASPIRIN 81 MG EC TABLET PO SCH (08:28)
[2016-10-23] MEDS: MAGNESIUM HYDROXIDE SUSPENSION 30 ML UDCUP PO PRN (13:04)
[2016-10-23 16:22] VITALS: BP 107/66
[2016-10-23 18:32] LABS: GLUCOSE,POINT OF CARE 92 MG/DL (70-110)
[2016-10-23] MEDS: GABAPENTIN 300 MG CAPSULE PO SCH (20:39)
[2016-10-23] MEDS: ATORVASTATIN CALCIUM 40 MG TABLET PO SCH (20:39)
[2016-10-23] MEDS ORDERED: POLYETHYLENE GLYCOL 3350 17 GM PACKET PO PRN (20:45)
[2016-10-23] MEDS: DOCUSATE SODIUM 250 MG CAPSULE PO SCH (21:10)
[2016-10-23] MEDS: SENNA 187 MG TABLET PO SCH (21:11)
[2016-10-24] MEDS: HYDROCODONE/ACETAMINOPHEN 5-325 MG TABLET PO PRN (02:43)
[2016-10-24 03:42] VITALS: BP 116/67
[2016-10-24 06:42] LABS: GLUCOSE,POINT OF CARE 126 MG/DL (70-110)
[2016-10-24 07:30] VITALS: BP 101/57
[2016-10-24] MEDS: VENLAFAXINE HCL 75 MG TABLET PO SCH (08:39)
[2016-10-24] MEDS: LISINOPRIL 5 MG TABLET PO SCH (08:39)
[2016-10-24] MEDS: HYDROCHLOROTHIAZIDE 25 MG TABLET PO SCH (08:39)
[2016-10-24] MEDS: DOCUSATE SODIUM 250 MG CAPSULE PO SCH ×2 (08:39→21:07)
[2016-10-24] MEDS: CLOPIDOGREL BISULFATE 75 MG TABLET PO SCH (08:39)
[2016-10-24] MEDS: LevETIRAcetam 500 MG TABLET PO SCH ×2 (08:39→21:07)
[2016-10-24] MEDS: GABAPENTIN 100 MG CAPSULE PO SCH ×2 (08:39→16:58)
[2016-10-24] MEDS: AmLODIPine BESYLATE 2.5 MG TABLET PO SCH (08:39)
[2016-10-24] MEDS: FAMOTIDINE 20 MG TABLET PO SCH (08:39)
[2016-10-24] MEDS: ASPIRIN 81 MG EC TABLET PO SCH (08:39)
[2016-10-24] MEDS ORDERED: GABAPENTIN 300 MG CAPSULE PO PRN (12:45)
[2016-10-24 15:05] VITALS: BP 111/66
[2016-10-24 17:32] LABS: GLUCOSE COMMENT 1 Received Meds; GLUCOSE,POINT OF CARE 181 MG/DL (70-110)
[2016-10-24] MEDS: INSULIN ASPART 100 UNITS/ML SQ PRN (18:03)
[2016-10-24] MEDS: ATORVASTATIN CALCIUM 40 MG TABLET PO SCH (21:07)
[2016-10-24] MEDS: GABAPENTIN 300 MG CAPSULE PO SCH (21:07)
[2016-10-24] MEDS: SENNA 187 MG TABLET PO SCH (21:08)
[2016-10-24 23:05] VITALS: BP 106/57
[2016-10-25 06:07] LABS: GLUCOSE,POINT OF CARE 102 MG/DL (70-110)
[2016-10-25] MEDS: LevETIRAcetam 500 MG TABLET PO SCH ×2 (08:09→21:41)
[2016-10-25] MEDS: DOCUSATE SODIUM 250 MG CAPSULE PO SCH ×3 (08:09→21:00)
[2016-10-25] MEDS: CLOPIDOGREL BISULFATE 75 MG TABLET PO SCH (08:09)
[2016-10-25] MEDS: VENLAFAXINE HCL 75 MG TABLET PO SCH (08:09)
[2016-10-25] MEDS: HYDROCHLOROTHIAZIDE 25 MG TABLET PO SCH (08:10)
[2016-10-25] MEDS: LISINOPRIL 5 MG TABLET PO SCH (08:10)
[2016-10-25] MEDS: FAMOTIDINE 20 MG TABLET PO SCH (08:10)
[2016-10-25] MEDS: ASPIRIN 81 MG EC TABLET PO SCH (08:10)
[2016-10-25] MEDS: GABAPENTIN 100 MG CAPSULE PO SCH ×2 (08:11→17:34)
[2016-10-25 08:12] VITALS: BP 112/57
[2016-10-25 15:00] VITALS: BP 117/65
[2016-10-25 17:57] LABS: GLUCOSE,POINT OF CARE 104 MG/DL (70-110)
[2016-10-25] MEDS: SENNA 187 MG TABLET PO SCH (21:00)
[2016-10-25] MEDS: GABAPENTIN 300 MG CAPSULE PO SCH (21:41)
[2016-10-25] MEDS: ATORVASTATIN CALCIUM 40 MG TABLET PO SCH (21:42)
[2016-10-26 02:00] VITALS: BP 111/56
[2016-10-26 06:12] LABS: GLUCOSE,POINT OF CARE 153 MG/DL (70-110)
[2016-10-26 07:15] VITALS: BP 112/58
[2016-10-26] MEDS: GABAPENTIN 100 MG CAPSULE PO SCH ×2 (08:14→17:08)
[2016-10-26] MEDS: HYDROCHLOROTHIAZIDE 25 MG TABLET PO SCH (08:14)
[2016-10-26] MEDS: CLOPIDOGREL BISULFATE 75 MG TABLET PO SCH (08:14)
[2016-10-26] MEDS: LevETIRAcetam 500 MG TABLET PO SCH ×2 (08:14→20:37)
[2016-10-26] MEDS: DOCUSATE SODIUM 250 MG CAPSULE PO SCH ×3 (08:14→21:00)
[2016-10-26] MEDS: ASPIRIN 81 MG EC TABLET PO SCH (08:15)
[2016-10-26] MEDS: FAMOTIDINE 20 MG TABLET PO SCH (08:15)
[2016-10-26] MEDS: LISINOPRIL 5 MG TABLET PO SCH (08:15)
[2016-10-26] MEDS: VENLAFAXINE HCL 75 MG TABLET PO SCH (08:15)
[2016-10-26] MEDS: INSULIN ASPART 100 UNITS/ML SQ PRN (08:16)
[2016-10-26] MEDS: HYDROCODONE/ACETAMINOPHEN 5-325 MG TABLET PO PRN ×2 (10:01→20:37)
[2016-10-26 15:30] VITALS: BP 108/62
[2016-10-26 17:42] LABS: GLUCOSE,POINT OF CARE 106 MG/DL (70-110)
[2016-10-26] MEDS: ATORVASTATIN CALCIUM 40 MG TABLET PO SCH (20:36)
[2016-10-26] MEDS: GABAPENTIN 300 MG CAPSULE PO SCH (20:37)
[2016-10-26] MEDS: SENNA 187 MG TABLET PO SCH (21:00)
[2016-10-27 04:26] VITALS: BP 104/67
[2016-10-27 06:22] LABS: GLUCOSE,POINT OF CARE 137 MG/DL (70-110)
[2016-10-27 07:25] VITALS: BP 104/61
[2016-10-27] MEDS: VENLAFAXINE HCL 75 MG TABLET PO SCH (08:23)
[2016-10-27] MEDS: ASPIRIN 81 MG EC TABLET PO SCH (08:23)
[2016-10-27] MEDS: CLOPIDOGREL BISULFATE 75 MG TABLET PO SCH (08:23)
[2016-10-27] MEDS: GABAPENTIN 100 MG CAPSULE PO SCH ×2 (08:23→17:03)
[2016-10-27] MEDS: LevETIRAcetam 500 MG TABLET PO SCH ×2 (08:23→20:36)
[2016-10-27] MEDS: FAMOTIDINE 20 MG TABLET PO SCH (08:23)
[2016-10-27] MEDS: LISINOPRIL 5 MG TABLET PO SCH (08:24)
[2016-10-27] MEDS: HYDROCHLOROTHIAZIDE 25 MG TABLET PO SCH (08:24)
[2016-10-27] MEDS: DOCUSATE SODIUM 250 MG CAPSULE PO SCH ×2 (08:24→20:37)
[2016-10-27 15:44] VITALS: BP 120/69
[2016-10-27] MEDS: HYDROCODONE/ACETAMINOPHEN 5-325 MG TABLET PO PRN (15:44)
[2016-10-27 16:24] VITALS: BP 120/69
[2016-10-27 17:12] LABS: GLUCOSE,POINT OF CARE 116 MG/DL (70-110)
[2016-10-27] MEDS: CALCIUM CARBONATE 500 MG CHEWABLE TABLET CHEW PRN (19:26)
[2016-10-27] MEDS: SENNA 187 MG TABLET PO SCH (20:37)
[2016-10-27] MEDS: ATORVASTATIN CALCIUM 40 MG TABLET PO SCH (20:37)
[2016-10-27] MEDS: GABAPENTIN 300 MG CAPSULE PO SCH (20:39)
[2016-10-27] MEDS: ACETAMINOPHEN 325 MG TABLET PO PRN (20:46)
[2016-10-27 21:46] VITALS: BP 101/58
[2016-10-27] MEDS: MAGNESIUM HYDROXIDE SUSPENSION 30 ML UDCUP PO PRN (22:11)
[2016-10-28 00:54] VITALS: BP 113/60
[2016-10-28] MEDS: HYDROCODONE/ACETAMINOPHEN 5-325 MG TABLET PO PRN (01:13)
[2016-10-28 06:37] LABS: GLUCOSE,POINT OF CARE 104 MG/DL (70-110)
[2016-10-28 07:30] VITALS: BP 104/60
[2016-10-28] MEDS: LevETIRAcetam 500 MG TABLET PO SCH ×2 (08:48→20:16)
[2016-10-28] MEDS: VENLAFAXINE HCL 75 MG TABLET PO SCH (08:48)
[2016-10-28] MEDS: HYDROCHLOROTHIAZIDE 25 MG TABLET PO SCH (08:48)
[2016-10-28] MEDS: FAMOTIDINE 20 MG TABLET PO SCH (08:48)
[2016-10-28] MEDS: CLOPIDOGREL BISULFATE 75 MG TABLET PO SCH (08:48)
[2016-10-28] MEDS: ASPIRIN 81 MG EC TABLET PO SCH (08:49)
[2016-10-28] MEDS: GABAPENTIN 100 MG CAPSULE PO SCH ×2 (08:49→16:26)
[2016-10-28] MEDS: LISINOPRIL 5 MG TABLET PO SCH (08:49)
[2016-10-28] MEDS: DOCUSATE SODIUM 250 MG CAPSULE PO SCH ×2 (08:49→20:16)
[2016-10-28] MEDS: CALCIUM CARBONATE 500 MG CHEWABLE TABLET CHEW PRN ×2 (11:09→16:28)
[2016-10-28] MEDS ORDERED: MAG HYDROX/AL HYDROX/SIMETH 30 ML SUSP UDCUP PO PRN (12:15)
[2016-10-28 15:09] VITALS: BP 123/66
[2016-10-28 19:02] LABS: GLUCOSE,POINT OF CARE 98 MG/DL (70-110)
[2016-10-28] MEDS: SENNA 187 MG TABLET PO SCH (20:16)
[2016-10-28] MEDS: ATORVASTATIN CALCIUM 40 MG TABLET PO SCH (20:16)
[2016-10-28] MEDS: GABAPENTIN 300 MG CAPSULE PO SCH (20:16)
[2016-10-29 00:44] VITALS: BP 116/63
[2016-10-29 05:58] LABS: GLUCOSE,POINT OF CARE 124 MG/DL (70-110)
[2016-10-29] MEDS: MAGNESIUM HYDROXIDE SUSPENSION 30 ML UDCUP PO PRN (06:04)
[2016-10-29 07:24] VITALS: BP 96/56
[2016-10-29 09:15] VITALS: BP 105/57
[2016-10-29] MEDS: LevETIRAcetam 500 MG TABLET PO SCH (09:17)
[2016-10-29] MEDS: VENLAFAXINE HCL 75 MG TABLET PO SCH (09:17)
[2016-10-29] MEDS: CLOPIDOGREL BISULFATE 75 MG TABLET PO SCH (09:17)
[2016-10-29] MEDS: DOCUSATE SODIUM 250 MG CAPSULE PO SCH (09:17)
[2016-10-29] MEDS: FAMOTIDINE 20 MG TABLET PO SCH (09:18)
[2016-10-29] MEDS: ASPIRIN 81 MG EC TABLET PO SCH (09:18)
[2016-10-29] MEDS: HYDROCHLOROTHIAZIDE 25 MG TABLET PO SCH (09:18)
[2016-10-29] MEDS: LISINOPRIL 5 MG TABLET PO SCH (09:18)
[2016-10-29] MEDS: GABAPENTIN 100 MG CAPSULE PO SCH (09:18)
[2016-10-29] MEDS ORDERED: ATOR40TA71 PO (10:00)
[2016-10-29] MEDS ORDERED: VENL-193 PO (10:00)
[2016-10-29] MEDS ORDERED: HYDR25TA PO (10:00)
[2016-10-29] MEDS ORDERED: ASPI-1093 PO (10:00)
[2016-10-29] MEDS ORDERED: GABA-531 PO (10:00)
[2016-10-29] MEDS ORDERED: CLOP75 PO (10:00)
[2016-10-29] MEDS ORDERED: LISI-622 PO (10:00)
[2016-10-29] MEDS ORDERED: GABA-529 PO (10:00)
[2016-10-29] MEDS ORDERED: FAMO20 PO (10:00)
[2016-10-29] MEDS ORDERED: DOCU250C76 PO (10:00)
[2016-10-29] MEDS ORDERED: SENN-187 PO (10:00)
[2016-10-29] MEDS ORDERED: LEVE500T53 PO (10:00)
== END 2016-10-29 15:00 | disposition home health service (06) | DRG 56 ==
LOC: 2WR 15:40
DX: I69.351 Hemiplegia and hemiparesis following cerebral infarction affecting right dominant side (principal); I63.9 Cerebral infarction, unspecified; E44.0 Moderate protein-calorie malnutrition; I11.0 Hypertensive heart disease with heart failure; I50.9 Heart failure, unspecified; E11.9 Type 2 diabetes mellitus without complications; G62.9 Polyneuropathy, unspecified; F32.9 Major depressive disorder, single episode, unspecified; E78.5 Hyperlipidemia, unspecified; G40.909 Epilepsy, unspecified, not intractable, without status epilepticus; K59.00 Constipation, unspecified; L60.0 Ingrowing nail; M19.90 Unspecified osteoarthritis, unspecified site; Z79.02 Long term (current) use of antithrombotics/antiplatelets; Z79.82 Long term (current) use of aspirin; Z79.899 Other long term (current) drug therapy; Z82.49 Family history of ischemic heart disease and other diseases of the circulatory system; Z68.24 Body mass index [BMI] 24.0-24.9, adult
CPT/HCPCS: 74000; 82962; 83036; 87081; 92507; 92508; 92523; 97110; 97112; 97116; 97150; 97162; 97166; 97530; 97535; 99366

== ENCOUNTER 2016-11-04 10:50 | Emergency (ER) | payer BC ==
[~2016-11-04] VITALS: Ht 167.6 cm; Wt 68.2 kg
[~2016-11-04 10:50] MED LIST changes: -AMLO2.5T PO; +ATOR40TA71 PO; -CARB-60 PO; +DOCU250C76 PO; +FAMO20 PO; +GABA-531 PO; -HYDR-3965 PO; +LISI-622 PO; -METO5TAB95 PO; +SENN-187 PO
[2016-11-04 11:07] LABS: GLUCOSE,POINT OF CARE 150 MG/DL (70-110)
[2016-11-04] MEDS ORDERED: ACETAMINOPHEN 325 MG TABLET PO ONE (12:00)
[2016-11-04 12:51] LABS: BASOPHILS % (AUTO) 0.2 % (0.0-2.0); EOSINOPHILS % (AUTO) 0.2 % (1.0-6.0); HEMATOCRIT 34.6 % (36-46); HEMOGLOBIN 11.6 g/dL (12.0-16.0); LYMPHOCYTES # (AUTO) 3.7 K/uL (1.0-4.8); LYMPHOCYTES % (AUTO) 44.8 % (22.0-44.0); MEAN CORPUSCULAR HEMOGLOBIN 29.5 pg (26.0-34.0); MEAN CORPUSCULAR HGB CONC 33.5 G/dL (31.0-37.0); MEAN CORPUSCULAR VOLUME 88 fL (80-100); MONOCYTES # (AUTO) 0.6 K/uL (0.1-1.0); MONOCYTES % (AUTO) 6.8 % (2.0-9.0); PLATELET COUNT (AUTO) 468 K/uL (150-450); RED BLOOD CELL COUNT(AUTO) 3.93 MIL/uL (4.00-5.20); RED CELL DISTRIBUTION WIDTH 13.9 % (11.5-14.5); WHITE BLOOD COUNT (AUTO) 8.3 K/uL (4.5-11.0)
[2016-11-04 12:55] LABS: CALCIUM, TOTAL 8.7 mg/dL (8.8-10.5); CREATININE 1.23 mg/dL (0.60-1.30); POTASSIUM 4.1 mmol/L (3.5-5.1)
[2016-11-04 13:03] LABS: BILIRUBIN,TOTAL 0.3 mg/dL (0.1-1.0); TOTAL PROTEIN, SERUM 6.9 g/dL (6.4-8.2)
[2016-11-04 13:05] VITALS: BP 121/72
[2016-11-05] MEDS ORDERED: SENN8.6T90 PO (12:27)
== END 2016-11-04 13:28 | disposition home or self-care (01) ==
LOC: EMS 10:51
DX: S16.1XXA Strain of muscle, fascia and tendon at neck level, initial encounter (principal); I11.0 Hypertensive heart disease with heart failure; I50.9 Heart failure, unspecified; E11.9 Type 2 diabetes mellitus without complications; E78.00 Pure hypercholesterolemia, unspecified; Z91.011 Allergy to milk products; Z79.82 Long term (current) use of aspirin; Z86.73 Personal history of transient ischemic attack (TIA), and cerebral infarction without residual deficits; W19.XXXA Unspecified fall, initial encounter; Y93.89 Activity, other specified; Y92.89 Other specified places as the place of occurrence of the external cause; Y99.8 Other external cause status
CPT/HCPCS: 70450; 82962; 99285